=== PATIENT | female | born 1965 | race Caucasian/White ===

== ENCOUNTER → 2018-08-01 | Outpatient (CLI) | payer BC ==
[~2018-08-01] MED LIST: ACET-1600 PO; ASCO500C2 PO; CHOL500045 PO; DIPH25CA61 PO; FERR142T13 PO; LEVO88TA2 PO; LIOT5TAB10 PO; PHEN-416 PO; [UNRECOGNIZED DRUG - OTHER] PO; progesterone PO
[2018-08-01 16:28] LABS: BASOPHILS # (AUTO) 0.07 x10^3/uL (0-0.1); BASOPHILS % (AUTO) 1 % (0-1); EOSINOPHILS # (AUTO) 0.11 x10^3/uL (0-0.4); EOSINOPHILS % (AUTO) 1 % (1-7); LYMPHOCYTES # (AUTO) 2.23 x10^3/uL (1-3.4); LYMPHOCYTES % (AUTO) 23 % (22-44); MD NO; MEAN CORPUSCULAR HEMOGLOBIN 31.4 pg (27.0-34.8); MEAN CORPUSCULAR HGB CONC 33.1 g/dL (32.4-35.8); MEAN CORPUSCULAR VOLUME 95.1 fL (80-100); MEAN PLATELET VOLUME 7.2 fL (7.4-10.4); MONOCYTES # (AUTO) 0.68 x10^3/uL (0.2-0.8); MONOCYTES % (AUTO) 7 % (2-9); NEUTROPHILS # (AUTO) 6.72 x10^3/uL (1.8-6.8); NEUTROPHILS % (AUTO) 69 % (42-75); PLATELET COUNT 424 x10^3/uL (130-400); RED BLOOD COUNT 4.17 x10^6/uL (3.82-5.3); RED CELL DISTRIBUTION WIDTH 17.3 % (9.6-15.2)
[2018-08-01 16:36] LABS: ANION GAP 7 mmol/L (5-15); CALCIUM 8.8 mg/dL (8.5-10.1); CHLORIDE 110 mmol/L (98-107); CREATININE 0.92 mg/dL (0.55-1.02)
== END | disposition home or self-care (01) ==
LOC: STAR 15:25
PROVIDERS: ATTEND Obstetrics & Gynecology Female Pelvic Medicine and Reconstructive Surgery
DX: Z01.818 Encounter for other preprocedural examination (principal); Z85.3 Personal history of malignant neoplasm of breast; Z90.710 Acquired absence of both cervix and uterus
CPT/HCPCS: 36415; 71046; 80048; 85025; 93005

== ENCOUNTER 2018-08-21 10:52 | Day surgery (SDC) | payer BC ==
[~2018-08-21] VITALS: Ht 172.7 cm; Wt 74.4 kg
[2018-08-21] MEDS ORDERED: LACTATED RINGERS 1,000 ML IV SCH (12:03)
[2018-08-21 12:11] LABS: HCG UR SG 1.019 (1.003-1.030)
[2018-08-21] MEDS ORDERED: BUPIVACAINE 0.25% ONE (12:23)
[2018-08-21] MEDS ORDERED: INDIGO CARMINE 0.8%, 5ML ONE (12:24)
[2018-08-21] MEDS ORDERED: EPINEPHRINE 1 MG/ML, 1ML ONE (12:24)
[2018-08-21] MEDS ORDERED: THROMBIN 5,000 UNIT VIAL TP ONE (12:24)
[2018-08-21] MEDS ORDERED: ACETAMINOPHEN 500 MG TABLET PO ONE (12:30)
[2018-08-21] MEDS ORDERED: ONDANSETRON ODT 8 MG PO ONE (12:30)
[2018-08-21 12:34] VITALS: BP 113/77
[2018-08-21] MEDS ORDERED: KETOROLAC 30 MG/1 ML ONE (12:37)
[2018-08-21] MEDS ORDERED: FENTANYL PF 250 MCG/5ML ONE (12:37)
[2018-08-21] MEDS ORDERED: MIDAZOLAM 1 MG/ML, 5ML ONE (12:37)
[2018-08-21] MEDS ORDERED: GLYCOPYRROLATE 0.2MG/1ML, 5ML ONE (12:37)
[2018-08-21] MEDS ORDERED: PROPOFOL 10 MG/ML, 20ML ONE (12:37)
[2018-08-21] MEDS ORDERED: DEXAMETHASONE 4 MG/ML, 1ML ONE (12:37)
[2018-08-21] MEDS ORDERED: NEOSTIGMINE 1 MG/ML, 10ML ONE (12:37)
[2018-08-21] MEDS ORDERED: ROCURONIUM 10MG/ML,5ML ONE (12:37)
[2018-08-21] MEDS ORDERED: LIDOCAINE 2% 100MG/5ML SYRINGE ONE (12:37)
[2018-08-21] MEDS ORDERED: CEFAZOLIN 1,000 MG ONE (12:37)
[2018-08-21] MEDS ORDERED: HYDROmorphone 1 MG/ML, 1ML IV PRN (13:30)
[2018-08-21] MEDS ORDERED: PROMETHAZINE 25 MG SUPP PR PRN (13:30)
[2018-08-21] MEDS ORDERED: SCOPOLAMINE PATCH, 1.5MG PATCH.TD72 TD PRN (13:30)
[2018-08-21] MEDS ORDERED: MEPERIDINE/PF 25MG/0.5ML IVPush PRN (13:30)
[2018-08-21] MEDS ORDERED: ONDANSETRON 2MG/ML, 2ML IV PRN (13:30)
[2018-08-21] MEDS ORDERED: ALBUTEROL/IPRATROPIUM 2.5MG/0.5MG, 3 ML NPPB PRN (13:30)
[2018-08-21] MEDS ORDERED: LABETALOL 5MG/ML, 20ML IV PRN (13:30)
[2018-08-21] MEDS ORDERED: OXYcodone 5 MG/5 ML ORAL.SOL UDC PO PRN (13:30)
[2018-08-21] MEDS ORDERED: MIDAZOLAM 1 MG/ML, 2ML IV PRN (13:30)
[2018-08-21] MEDS ORDERED: ONDANSETRON 2MG/ML, 2ML IVPush PRN (15:00)
[2018-08-21] MEDS ORDERED: PROMETHAZINE 25 MG SUPP PR ONE (15:00)
[2018-08-21] MEDS ORDERED: HYDROcodone/APAP 5/325 TABLET PO PRN (15:00)
[2018-08-21] MEDS ORDERED: IBUPROFEN 600 MG TABLET PO PRN (15:00)
[2018-08-21] MEDS ORDERED: OXYcodone 5 MG/5 ML ORAL.SOL UDC ONE (15:22)
[2018-08-21] MEDS ORDERED: FENTANYL PF 100 MCG/2ML ONE (15:22)
[2018-08-21] MEDS: FENTANYL PF 100 MCG/2ML IV PRN ×2 (15:25→15:35)
[2018-08-21] MEDS ORDERED: ONDANSETRON ODT 4 MG ONE (17:06)
== END 2018-08-21 18:55 | disposition home or self-care (01) ==
LOC: OUT 10:52
PROVIDERS: ATTEND Obstetrics & Gynecology Female Pelvic Medicine and Reconstructive Surgery
DX: D25.1 Intramural leiomyoma of uterus (principal); N80.0 Endometriosis of uterus; N88.8 Other specified noninflammatory disorders of cervix uteri; N93.8 Other specified abnormal uterine and vaginal bleeding; D64.9 Anemia, unspecified; N73.6 Female pelvic peritoneal adhesions (postinfective); E03.9 Hypothyroidism, unspecified; E78.00 Pure hypercholesterolemia, unspecified; Z85.3 Personal history of malignant neoplasm of breast
CPT/HCPCS: 58573; 58662; 81025; 88305; 88307; J0171; J0690; J1100; J1885; J2250; J2405; J2704; J2710; J3010; J3490; J7120; Q0162